=== PATIENT | female | born 1970 | race Caucasian/White ===

== ENCOUNTER 2017-04-05 21:54 | Emergency (ER) | payer MEDICAID, SELFPAY ==
[2017-04-05 21:55] VITALS: BP 143/91; PULSE 102; RESP 16; TEMP 36.8; O2SAT 98; BMI 28.2
[2017-04-05] MEDS: DiphenhydrAMINE 25 MG Capsule 50 MG PO (22:21)
[2017-04-05] MEDS: Famotidine 20 MG Tablet PO (22:21)
--- NOTE | 2017-04-05 22:39 | ED.DCSUM_ITS ---
- ER Visit Summary Date of Service: 04/05/17 Chief Complaint: Rash History of Present Illness: The patient is a 46 F sudden left upper lip swelling and diffuse rash starting at 8 PM this evening. Denies any tongue swelling or shortness of breath. Patient did state did switch to Tide detergent , however current close she is wearing was not washed with the detergent. No new medications. She is on Tegretol for seizures, however is been on this for years. Took an Cinthia at home. States pruritic. No previous similar symptoms. States after symptoms started, she did eat 3 slices of pizza. Ate the same type of pizza week ago. Physical Examination: General: Alert and oriented ?3, no acute distress HEENT: Normocephalic, atraumatic. Mild left upper lip swelling. No tongue swelling, airway patent. No stridor. Moist mucosa membranes Neck: supple, nontender. Cardiovascular: Regular rate and rhythm, no murmurs Respiratory: Normal breath sounds, symmetric, no distress Abdomen: Soft, nontender, nondistended Extremities: Nontender, no edema, pulses intact ?4 Neuro: no focal neurological deficits. Skin: Diffuse urticarial lesions midline back, upper abdomen, bilateral thighs. There is erythema and flushing of the skin the face abdomen and back. Test Results: [] Emergency Department Course and Treatment: Patient no airway compromise. She is treated with oral prednisone, Pepcid, Benadryl. Monitored multiple times. She did develop full upper lip swelling with no airway compromise. Her pruritic symptoms were improving. She will be monitored for at least 4 hours. She will be sent home with prescriptions for allergic reaction. Epinephrine pen prescription. She will need to follow-up with PCP for allergy testing. Treatment Plan: [] Disposition: Plan discharge Impression: 1. Angioedema 2. Allergic reaction with urticaria This note was generated with [employer] dictation software. It may contain incorrect words, spelling, and punctuation that were not noted in review of the chart prior to signing ED Disposition - Plan for ED Patient: Disposition: Home or Assisted Living Chief Complaint: Allergic Reaction Diagnosis: Angioedema, Allergic reaction Instructions: ED Allergic Reaction General Other, ED Angioedema Prescriptions: Epinephrine [Epi Pen] 0.3 mg IM X1 #2 syringe Prednisone 60 mg PO DAILY #12 tablet Famotidine [Pepcid] 20 mg PO BID #10 tablet Referrals: Marcus Martinez MD [Primary Care Provider] - 3-5 Days
[2017-04-05] MEDS: Ondansetron ODT 4 MG Tablet PO (23:48)
[2017-04-06 01:50] VITALS: BP 122/67; RESP 18; O2SAT 98
[2017-04-06] MEDS: Ondansetron ODT 4 MG Tablet PO (01:50)
== END 2017-04-06 01:51 | disposition home or self-care (01) ==
PROVIDERS: Emergency Provider Emergency Medicine; Family Provider Family Medicine; PCP Family Medicine
DX: T78.3XXA Angioneurotic edema, initial encounter (principal); R56.9 Unspecified convulsions; Z79.899 Other long term (current) drug therapy
CPT/HCPCS: 99283